=== PATIENT | female | born 1955 | race Caucasian/White ===

== ENCOUNTER 2025-04-25 10:08 | Emergency (ER) | payer MEDICARE, BC ==
[2025-04-25 10:50] LABS: BASOPHILS PERCENT AUTO 0.4 % (0.0-1.0); EOSINOPHILS PERCENT AUTO 0.7 % (1.0-3.0); LYMPHOCYTES PERCENT AUTO 13.7 % (20.5-50.1); MONOCYTES PERCENT AUTO 6.1 % (2-8); NEUTROPHILS PERCENT AUTO 79.1 % (42.2-75.2); PLATELET COUNT,PLT 307 10^3/uL (150-450); RED BLOOD CELL COUNT 4.58 10^6/uL (4.2-5.4); WHITE BLOOD CELL COUNT,WBC 7.0 10^3/uL (5.0-10.0)
[2025-04-25 11:00] LABS: APPEARANCE,URINE CLOUDY (CLEAR); GLUCOSE,URINE NEGATIVE (NEGATIVE); OCCULT BLOOD,URINE LARGE (NEGATIVE)
[2025-04-25 11:09] LABS: EPITHELIAL CELLS,URINE FEW /HPF (NOT SEEN)
[2025-04-25 11:11] LABS: A/G RATIO 1.1; ALANINE AMINOTRANSFERASE,ALT 18.0 U/L (14-59); ASPARTATE AMNIOTRANSFERASE,AST 15.0 U/L (15-37); BILIRUBIN TOTAL 0.5 mg/dL (0.2-1.0); BLOOD UREA NITROGEN,BUN 19.0 mg/dL (7-18); CARBON DIOXIDE,CO2 29.0 mmol/L (21-32); CHLORIDE,CL 104.0 mmol/L (98-107); CREATININE 0.7 mg/dL (0.55-1.02); EST CRCL DRUG DOSING (CG) 69.01 mL/min; ESTIMATED GFR 92.0 mL/min (>=60); GLUCOSE RANDOM 137.0 mg/dL (70-99); POTASSIUM,K 4.2 mmol/L (3.5-5.1); PROTEIN TOTAL,TP 7.1 g/dL (6.4-8.2); SODIUM,NA 140.0 mmol/L (136-145)
[2025-04-25] MEDS: Take Home: Ciprofloxacin HCl 500 MG, 6 Tab Pack PO ONE (11:27)
== END 2025-04-25 11:34 | disposition home or self-care (01) ==
LOC: DL.ED 10:08
DX: N39.0 Urinary tract infection, site not specified (principal)
CPT/HCPCS: 36415; 80053; 81001; 85025; 87086; 99284; A9270-GY